=== PATIENT | female | born 2000 ===

== ENCOUNTER 2020-01-17 16:20 | Emergency (ER) | payer OTHER ==
[2020-01-17 16:50] VITALS: BP 107/73
--- NOTE | 2020-01-17 16:56 | UC ---
Eye Complaint HPI - HPI Summary HPI Summary: 19-year-old female presenting with friend for complaint of "possible stye" in the left eye 3 months. Patient states she has had styes before but they never last this long. States that it gets better somewhat but then comes back. Notes constant discomfort. Denies drainage or crusting. Denies redness and swelling. Denies vision changes. States she applies warm compresses 2-3 times weekly but is "very inconsistent." - History of Current Complaint Chief Complaint: UCEye Stated Complaint: POSS STYE Hx Obtained From: Patient Hx Last Menstrual Period: unsure, possibly last month Pain Intensity: 7 - Allergies/Home Medications Allergies/Adverse Reactions: Allergies Allergy/AdvReac Type Severity Reaction Status Date / Time No Known Allergies Allergy Verified 01/17/20 17:16 Home Medications: Home Medications Erythromycin OPTH OINT* [Erythromycin 0.5% OPTH OINT*] 1 applic LEFT EYE TID 7 Days #1 ophth.oint 01/17/20 [Rx] PMH/Surg Hx/FS Hx/Imm Hx - Surgical History Surgical History: None - Family History Known Family History: Positive: Non-Contributory - Social History Alcohol Use: Occasionally Substance Use Type: None Smoking Status (MU): Never Smoked Tobacco Review of Systems All Other Systems Reviewed And Are Negative: No Constitutional: Positive: Negative Skin: Positive: Negative Eyes: Positive: Other - "possible stye" L eye. Negative: Blurred Vision, Diplopia, Drainage, Eye Redness, Photophobia Respiratory: Positive: Negative Cardiovascular: Positive: Negative Musculoskeletal: Positive: Negative Neurological/Mental Status: Positive: Negative Physical Exam - Summary Physical Exam Summary: Vital Signs Reviewed: Yes A+Ox3, no distress Eyes: Conjunctiva Clear, ~4mm stye noted in internal lateral left lower eyelid. non draining, nonbleeding, minimal tenderness with palpation ENT: Hearing grossly normal neck: supple Respiratory: Positive: No respiratory distress, No accessory muscle use Cardiovascular: skin color reflect adequate perfusion Musculoskeletal Exam: WELLER x 4 without difficulty Neurological: Positive: Alert, ambulatory without difficulty Psychological: Positive: age appropriate behavior, anxious Skin: Positive: no rash, no ecchymosis Vital Signs: Initial Vital Signs Temp 99 F 01/17/20 16:42 Pulse 81 01/17/20 16:42 Resp 18 02/21/20 16:42 BP 107/73 01/17/20 16:42 Pulse Ox 100 01/17/20 16:42 Eye Complaint Course/Dx - Course Course Of Treatment: Patient presenting with stye of left lower eyelid 3 months. Notes discomfort. I placed tetracaine drops in the eye and attempted to drain the stye with a cotton swab without success. Patient stated last time she had a stye and antibiotic ointment helped relieve it. I provided the patient with erythromycin ointment and instructed to apply warm compresses consistently for the next week. Instructed to follow-up with Dr. Issa if symptoms not improving within 7 days. Patient voiced understanding and agreed with the treatment plan. Patient also requested referral for psych evaluation because she is "pretty sure she has ADHD." - Differential Dx/Diagnosis Provider Diagnosis: Hordeolum internum of left lower eyelid Discharge ED - Sign-Out/Discharge Documenting (check all that apply): Patient Departure All imaging exams completed and their final reports reviewed: No Studies - Discharge Plan Condition: Stable Disposition: HOME Prescriptions: Erythromycin OPTH OINT* [Erythromycin 0.5% OPTH OINT*] 1 applic LEFT EYE TID 7 Days #1 ophth.oint Patient Education Materials: Stye (ED) Referrals: [facility] [Outside] - If Needed Cristóbal Issa MD [Medical Doctor] - If Needed Additional Instructions: Apply warm compresses to the eye 3 times daily for 15-20 minutes. Use the antibiotic ointment 3 times daily for 7 days. Follow up with the Dr. Issa listed below if symptoms not improving within 7 days. You may also follow up with the referral listed below for mental health if needed. - Billing Disposition and Condition Condition: STABLE Disposition: Home
[2020-01-17] MEDS ORDERED: Tetracaine 0.5% OPTH.SOL 4 ML* 1 DROP BTL LEFT EYE ONE (17:06)
== END 2020-01-17 17:50 | disposition home or self-care (01) ==
LOC: UCEAST 16:20
DX: H00.025 Hordeolum internum left lower eyelid (principal)
CPT/HCPCS: 99212; A9270-GY; G0463